=== PATIENT | female | born 1950 | race Caucasian/White ===

== ENCOUNTER → 2016-09-04 | Outpatient (CLI) | payer MEDICARE, OTHER ==
[~2016-09-04] MED LIST: ALPR0.255 PO; AMLO-511 PO; ATEN50TA PO; BENA20 PO; CHOL200016 PO; DSS100 PO; EVOL140S INJ; GABA-318 PO; GADOBUTROL 1 MMOL/ML 10 ML VIAL IVP ONE; OMEP20 PO
== END | disposition home or self-care (01) ==
LOC: RADMN 11:05
PROVIDERS: ATTEND Legal Medicine
DX: M54.2 Cervicalgia (principal)
CPT/HCPCS: 72141; A9585

== ENCOUNTER → 2016-10-08 | Outpatient (CLI) | payer MEDICARE, OTHER ==
[~2016-10-08] MED LIST changes: -GADOBUTROL 1 MMOL/ML 10 ML VIAL IVP ONE
== END | disposition home or self-care (01) ==
LOC: RADPV 15:50
PROVIDERS: ATTEND Legal Medicine
DX: M47.892 Other spondylosis, cervical region (principal); M12.88 Other specific arthropathies, not elsewhere classified, other specified site; M47.896 Other spondylosis, lumbar region; M51.37 Other intervertebral disc degeneration, lumbosacral region; I70.8 Atherosclerosis of other arteries; M47.898 Other spondylosis, sacral and sacrococcygeal region; Z98.1 Arthrodesis status
CPT/HCPCS: 72040; 72100; 72220

== ENCOUNTER 2016-10-14 14:42 | Emergency (ER) | payer MEDICARE, OTHER | END 2016-10-14 18:25 | disposition left against medical advice (07) | LOC: EMS 14:43 | DX: M54.9 Dorsalgia, unspecified (principal); Z53.21 Procedure and treatment not carried out due to patient leaving prior to being seen by health care provider ==

== ENCOUNTER → 2017-01-05 | Outpatient (CLI) | payer MEDICARE, OTHER | END | disposition home or self-care (01) | LOC: RADPV 10:51 | PROVIDERS: ATTEND Legal Medicine | DX: M19.011 Primary osteoarthritis, right shoulder (principal) ==

== ENCOUNTER → 2017-04-26 | Outpatient (CLI) | payer MEDICARE, OTHER | END | disposition home or self-care (01) | LOC: RADMN 10:18 | PROVIDERS: ATTEND Specialist | DX: M75.101 Unspecified rotator cuff tear or rupture of right shoulder, not specified as traumatic (principal); M25.411 Effusion, right shoulder; M65.811 Other synovitis and tenosynovitis, right shoulder; M75.21 Bicipital tendinitis, right shoulder | CPT/HCPCS: 73221 ==

== ENCOUNTER → 2017-05-31 | Outpatient (CLI) | payer MEDICARE, OTHER | END | disposition home or self-care (01) | LOC: RADPV 13:37 | PROVIDERS: ATTEND Legal Medicine | DX: M79.605 Pain in left leg (principal); R60.0 Localized edema | CPT/HCPCS: 93971 ==

== ENCOUNTER → 2021-06-06 | Outpatient (CLI) | payer MEDICARE, OTHER ==
[~2021-06-06] MED LIST changes: +AMLO-257 PO; -AMLO-511 PO; +ATEN-72 PO; -ATEN50TA PO; -BENA20 PO; +BENA20TA83 PO; -EVOL140S INJ; +EVOL140S2 INJ; -GABA-318 PO; +GABA600T10 PO
== END | disposition home or self-care (01) ==
LOC: RADPV 10:44
PROVIDERS: ATTEND Legal Medicine
DX: I82.409 Acute embolism and thrombosis of unspecified deep veins of unspecified lower extremity (principal)
CPT/HCPCS: 93971

== ENCOUNTER → 2021-09-22 | Outpatient (CLI) | payer MEDICARE, MEDICAID | END | disposition home or self-care (01) | LOC: RADMN 09:29 | PROVIDERS: ATTEND Legal Medicine | DX: M50.322 Other cervical disc degeneration at C5-C6 level (principal); M48.02 Spinal stenosis, cervical region; Z98.1 Arthrodesis status | CPT/HCPCS: 72141 ==

== ENCOUNTER 2024-08-08 13:09 | Emergency (ER) | payer OTHER ==
[~2024-08-08] VITALS: Ht 152.4 cm; Wt 81.8 kg
[~2024-08-08 13:09] MED LIST changes: +ALPR-705 PO; -ALPR0.255 PO; +BENA-18 PO; -BENA20TA83 PO; +GABA-1404 PO; -GABA600T10 PO
[2024-08-08] MEDS ORDERED: CHOL200059 PO (16:33)
[2024-08-08] MEDS ORDERED: DOCU-385 PO (16:33)
[2024-08-08] MEDS ORDERED: AMOX250C4 PO (16:41)
[2024-08-08 16:59] VITALS: BP 120/66; PULSE 78; RESP 18; TEMP 98.3; O2SAT 96
[2024-08-08] MEDS: AMOXICILLIN TRIHYDRATE 250 MG CAPSULE PO ONE (16:59)
== END 2024-08-08 17:24 | disposition home or self-care (01) ==
LOC: EMS 13:09
DX: H66.91 Otitis media, unspecified, right ear (principal); I10 Essential (primary) hypertension; K21.9 Gastro-esophageal reflux disease without esophagitis; F41.9 Anxiety disorder, unspecified; E78.00 Pure hypercholesterolemia, unspecified; Z88.5 Allergy status to narcotic agent; Z90.49 Acquired absence of other specified parts of digestive tract; Z90.710 Acquired absence of both cervix and uterus; Z91.041 Radiographic dye allergy status; Z79.899 Other long term (current) drug therapy
CPT/HCPCS: 99283